=== PATIENT | male | born 1985 | race Caucasian/White ===

== ENCOUNTER 2017-08-27 11:50 | Emergency (ER) | payer MEDICAID ==
[2017-08-27] MEDS: HYDROCODONE/APAP (10/325) TAB PO (12:38)
== END 2017-08-27 14:38 | disposition home or self-care (01) ==
LOC: FTE 11:50
DX: S00.81XA Abrasion of other part of head, initial encounter (principal); S29.9XXA Unspecified injury of thorax, initial encounter; I10 Essential (primary) hypertension; J45.909 Unspecified asthma, uncomplicated; R51 Headache; V49.40XA Driver injured in collision with unspecified motor vehicles in traffic accident, initial encounter
CPT/HCPCS: 70450; 70486; 71045; 71100; 71101-RT; 99285-25